=== PATIENT | female | born 2000 | race Two or more races ===

== ENCOUNTER 2022-08-20 23:55 | Outpatient (CLI) | payer MEDICAID, SELFPAY | END 2022-08-20 23:56 | disposition home or self-care (01) | LOC: AMB 08-22 10:51 | PROVIDERS: Visit Provider Emergency Medicine Emergency Medical Services | DX: R45.851 Suicidal ideations (principal); F10.129 Alcohol abuse with intoxication, unspecified | CPT/HCPCS: A0425; A0429 ==

== ENCOUNTER 2022-08-21 00:15 | Emergency (ER) | payer MEDICAID, SELFPAY ==
[2022-08-21 00:21] VITALS: BP 137/84; PULSE 82; RESP 18; TEMP 36.7; O2SAT 99; BMI 30.8
[2022-08-21 00:33] VITALS: BP 130/73; PULSE 73; RESP 16; O2SAT 97
[2022-08-21 01:01] VITALS: BP 124/88; PULSE 97; RESP 16; O2SAT 98
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
[2022-08-21 01:03] VITALS: O2SAT 98
[2022-08-21 01:15] LABS: Basophils Absolute Auto 0.04 K/uL (0.00-0.30); Basophils Percent Auto 0.5 % (0.0-3.0); Eosinophils Absolute Auto 0.06 K/uL (0.00-0.50); Eosinophils Percent Auto 0.8 % (0.0-7.0); Hematocrit 35.5 % (33.0-51.0); Hemoglobin* 12.2 gm/dL (12.0-16.0); Immature Granulocytes Abs Auto 0.01 K/uL (0.00-0.30); Immature Granulocytes Pct Auto 0.1 %; Lymphocytes Absolute Auto 2.58 K/uL (0.90-2.90); Lymphocytes Percent Auto 34.8 % (20-44); Mean Corpuscular HGB Conc 34 gm/dL (32-36); Mean Corpuscular Hemoglobin 33 pg (26-34); Mean Corpuscular Volume 97 fL (80-100); Monocytes Percent Auto 8.4 % (0.0-11.0); Neutrophils Percent Auto 55.4 % (42.0-72.0); Platelet Count* 281 K/uL (140-440); RDW Coefficient of Variation % 11.6 % (11.5-15.5); Red Blood Count 3.68 m/uL (4.00-5.20); White Blood Count* 7.41 K/uL (4.50-11.00)
[2022-08-21 01:18] LABS: Slide Review Reflex No
[2022-08-21 01:27] LABS: Amphetamine Screen Urine Negative (Negative); Barbiturate Screen Urine Negative (Negative); Benzodiazepines Screen Urine Negative (Negative); Cannabinoid Screen Urine Negative (Negative); Cocaine Screen Urine Negative (Negative); Methadone Screen Urine Negative (Negative); Methamphetamines Screen Urine Negative (Negative); Opiate Screen Urine Negative (Negative); Oxycodone Screen Urine Negative (Negative); Phencyclidine Screen Urine Negative (Negative)
[2022-08-21 01:28] LABS: HCG Qualitative* Negative (Negative)
[2022-08-21 01:30] LABS: Chloride* 106 mmol/L (96-114); Sodium* 143 mmol/L (135-149)
[2022-08-21 01:31] LABS: Potassium* 3.4 mmol/L (3.6-5.1)
[2022-08-21 01:33] LABS: Carbon Dioxide* 24 mmol/L (20-32); Creatinine* 0.6 mg/dL (0.5-1.5); Est. Creatinine Clearance* 132.34; Estimated Glomerular Filt Rate 130 ml/min
[2022-08-21 01:34] LABS: Blood Urea Nitrogen* 9 mg/dL (5-24); Calcium* 8.4 mg/dL (8.4-10.6); Glucose* 110 mg/dL (60-115)
[2022-08-21 01:37] LABS: Acetaminophen* < 10.0 ug/mL (10.0-30.0); Salicylate* < 1.0 mg/dL (1.0-10)
[2022-08-21 01:45] LABS: Ethanol* 0.36 % (0.01-0.03)
[2022-08-21 03:55] VITALS: BP 125/74; PULSE 79; RESP 16; TEMP 36.7; O2SAT 98
--- NOTE | 2022-08-21 09:56 | ED.NURSE ---
Called Mom, Kriss and she will be here in 15 min to pick daughter up for the day.
== END 2022-08-21 10:09 | disposition home or self-care (01) ==
PROVIDERS: Family Medicine; Emergency Provider Family Medicine
DX: F10.129 Alcohol abuse with intoxication, unspecified (principal); R45.851 Suicidal ideations
CPT/HCPCS: 36415; 80048; 80143; 80179; 80306; 82077; 84703; 85025; 94761; 99283; 99284

== ENCOUNTER 2023-02-08 14:18 | Outpatient (CLI) | payer MEDICAID, SELFPAY | END 2023-02-08 14:19 | disposition home or self-care (01) | LOC: AMB 02-11 10:23 | PROVIDERS: Visit Provider Family Medicine | DX: F10.129 Alcohol abuse with intoxication, unspecified (principal) | CPT/HCPCS: A0425; A0427 ==

== ENCOUNTER 2023-02-08 14:52 | Emergency (ER) | payer MEDICAID, SELFPAY ==
[2023-02-08] VITALS (20 sets, daily range): BP systolic 109–125; BP diastolic 61–75; PULSE 74–105; RESP 12–16; TEMP 36.3; O2SAT 89–100
[2023-02-08] MEDS: ONDANSETRON 2 MG/ML inj 4 MG IVP (15:06)
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
[2023-02-08] MEDS: 0.9 % SODIUM CHLORIDE 1000 ml 1,000 ML IV (15:24)
--- NOTE | 2023-02-08 15:36 | ED.NURSE ---
Pt not currently in restraints at this time, has agreed to be calm Blood was drawn and fluids hung for replenishment and pt resting calmly at this time.
[2023-02-08 15:38] LABS: Basophils Absolute Auto 0.08 K/uL (0.00-0.30); Basophils Percent Auto 1.5 % (0.0-3.0); Eosinophils Absolute Auto 0.05 K/uL (0.00-0.50); Hematocrit 38.2 % (33.0-51.0); Hemoglobin* 13.1 gm/dL (12.0-16.0); Immature Granulocytes Abs Auto 0.01 K/uL (0.00-0.30); Immature Granulocytes Pct Auto 0.2 %; Lymphocytes Percent Auto 46.8 % (20-44); Mean Corpuscular HGB Conc 34 gm/dL (32-36); Mean Corpuscular Hemoglobin 33 pg (26-34); Mean Corpuscular Volume 97 fL (80-100); Monocytes Percent Auto 6.1 % (0.0-11.0); Neutrophils Absolute Auto 2.31 K/uL (1.7-7.0); Neutrophils Percent Auto 44.4 % (42.0-72.0); Platelet Count* 338 K/uL (140-440); RDW Coefficient of Variation % 11.5 % (11.5-15.5); Red Blood Count 3.94 m/uL (4.00-5.20); White Blood Count* 5.21 K/uL (4.50-11.00)
[2023-02-08 15:50] LABS: Slide Review Reflex No
[2023-02-08 16:03] LABS: Albumin* 4.9 g/dL (3.3-5.0); Chloride* 109 mmol/L (96-114)
[2023-02-08 16:04] LABS: Potassium* 3.4 mmol/L (3.6-5.1); Sodium* 142 mmol/L (135-149)
[2023-02-08 16:06] LABS: Anion Gap 14 mEq/L (7-15); Aspartate Amino Transferase* 28 U/L (12-35); Bilirubin Total* 0.6 mg/dL (0.1-1.5); Carbon Dioxide* 19 mmol/L (20-32); Creatinine* 0.6 mg/dL (0.5-1.5); Estimated Glomerular Filt Rate 130 ml/min
[2023-02-08 16:07] LABS: Alanine Aminotransferase* 19 U/L (4-35); Alkaline Phosphatase* 69 U/L (40-150); Blood Urea Nitrogen* 6 mg/dL (5-24); Calcium* 8.4 mg/dL (8.4-10.6); Glucose* 125 mg/dL (60-115); Total Protein* 7.9 g/dL (6.0-8.3)
[2023-02-08 16:24] LABS: Magnesium* 2.1 mg/dL (1.5-2.6)
[2023-02-08 16:34] LABS: Acetaminophen* < 10.0 ug/mL (10.0-30.0); Salicylate* < 1.0 mg/dL (1.0-10)
[2023-02-08 16:39] LABS: HCG Qualitative Serum* Negative (Negative)
[2023-02-08 18:07] LABS: Amphetamine Screen Urine Negative (Negative); Barbiturate Screen Urine Negative (Negative); Benzodiazepines Screen Urine Negative (Negative); Cannabinoid Screen Urine Negative (Negative); Cocaine Screen Urine Negative (Negative); Methadone Screen Urine Negative (Negative); Methamphetamines Screen Urine Negative (Negative); Opiate Screen Urine Negative (Negative); Oxycodone Screen Urine Negative (Negative); Phencyclidine Screen Urine Negative (Negative); Tricyclic Antidepressant Urine Negative (Negative)
[2023-02-08 18:27] LABS: Ethanol* 0.38 % (0.01-0.03)
[2023-02-09 00:13] VITALS: BP 120/70; PULSE 84; RESP 16; TEMP 36.7; O2SAT 96
--- NOTE | 2023-02-09 07:19 | ED.NURSE ---
DEC assessment started.
--- NOTE | 2023-02-09 07:54 | ED.NURSE ---
reviewed safety plan with pt
--- NOTE | 2023-02-09 22:59 | ED.NURSE ---
chart accessed for DEC as they needed to know disposition.
== END 2023-02-09 07:54 | disposition home or self-care (01) ==
PROVIDERS: Emergency Provider Family Medicine
DX: R45.851 Suicidal ideations (principal); F32.A Depression, unspecified; F10.129 Alcohol abuse with intoxication, unspecified
CPT/HCPCS: 36415; 80053; 80143; 80179; 80306; 82077; 83735; 84703; 85025; 96361; 96374; 99284; 99285; J2405; J7030

== ENCOUNTER 2023-07-10 16:58 | Outpatient (CLI) | payer MEDICAID, SELFPAY | END 2023-07-10 16:59 | disposition home or self-care (01) | LOC: AMB 07-11 05:09 | PROVIDERS: Visit Provider Emergency Medicine | DX: F10.129 Alcohol abuse with intoxication, unspecified (principal); R11.2 Nausea with vomiting, unspecified | CPT/HCPCS: A0425; A0427 ==

== ENCOUNTER 2023-07-10 17:22 | Emergency (ER) | payer MEDICAID, SELFPAY ==
[2023-07-10] VITALS (27 sets, daily range): BP systolic 91–120; BP diastolic 53–75; PULSE 71–96; RESP 16–20; TEMP 36.4; O2SAT 93–100
--- NOTE | 2023-07-10 17:41 | ED_ITS ---
HPI - Alcohol General Date Seen: 07/10/23 <Aries Meierram DO - Last Filed: 07/10/23 23:51> Chief Complaint: Alcohol/Intoxication <Aries Hitchcock DO - Last Filed: 07/10/23 23:51> Stated Complaint: ETOH <Aries Hitchcock DO - Last Filed: 07/10/23 23:51> Time Seen by Provider: 07/10/23 17:23 <Aries Hitchcock DO - Last Filed: 07/10/23 23:51> Source: EMS <Aries Hitchcock DO - Last Filed: 07/10/23 23:51> Mode of arrival: EMS <Aries Hitchcock DO - Last Filed: 07/10/23 23:51> Limitations: altered mental status <Aries Hitchcock DO - Last Filed: 07/10/23 23:51> History of Present Illness HPI narrative: Patient is a 23-year-old female brought in by EMS for alcohol intoxication. The were called to her home by friends that she was drinking with because the patient was unresponsive. By the time EMS arrived she was awake but was obviously intoxicated. They state all the friend's at the house were also very intoxicated. Due to her level of intoxication initial unresponsiveness they did find necessary to bring her to the emergency department for evaluation. On the way she became combative and after a parnell conversation she calmed down. Was given 500 mL of fluid and 4 of Zofran for her nausea. Patient is still quite intoxicated and unable to clearly answer questions but she is awake. Very in her chart notes she has a history of alcohol abuse and has been in this emergency department twice in the past year for alcohol abuse and suicidal ideation. She has been quite intoxicated both time she was here. Family previous states she has failed outpatient alcohol counseling. <Aries P Naldo, DO - Last Filed: 07/10/23 23:51> Patient is a 23-year-old female brought in by EMS for alcohol intoxication. The were called to her home by friends that she was drinking with because the patient was unresponsive. By the time EMS arrived she was awake but was obviously intoxicated. They state all the friend's at the house were also very intoxicated. Due to her level of intoxication initial unresponsiveness they did find necessary to bring her to the emergency department for evaluation. On the way she became combative and after a parnell conversation she calmed down. Was given 500 mL of fluid and 4 of Zofran for her nausea. Patient is still quite intoxicated and unable to clearly answer questions but she is awake. Very in her chart notes she has a history of alcohol abuse and has been in this emergency department twice in the past year for alcohol abuse and suicidal ideation. She has been quite intoxicated both time she was here. Family previous states she has failed outpatient alcohol counseling. <Fariba Carr RN - Last Filed: 07/10/23 23:07> Related Data Home Medications: Home Medications Medication Instructions Recorded Confirmed No Known Home Medications 08/21/22 01/17/23 <Aries Hitchcock DO - Last Filed: 07/10/23 23:51> Allergies/Adverse Reactions: Allergies Allergy/AdvReac Type Severity Reaction Status Date / Time No Known Drug Allergies Allergy Verified 01/17/23 13:32 <Aries Hitchcock DO - Last Filed: 07/10/23 23:51> Review of Systems Status of ROS Reports: unobtainable due to mental status <Aries Hitchcock DO - Last Filed: 07/10/23 23:51> [facility] Medical History: Medical History Alcohol abuse ?F10.10 - Alcohol abuse, uncomplicated (ICD-10) <Aries Hitchcock DO - Last Filed: 07/10/23 23:51> Surgical History: Surgical History No significant past surgical history <Aries Hitchcock DO - Last Filed: 07/10/23 23:51> Social History: Social History Smoking Status: Never smoker Second hand tobacco smoke exposure: No How often do you have a drink containing alcohol: 4 or more times a week How many standard drinks containing alcohol do you have on a typical day: 10 or more How often do you have six or more drinks on one occasion: Daily or almost daily AUDIT-C Alcohol total score: 12 Non-prescribed substance use: denies use <Aries Hitchcock DO - Last Filed: 07/10/23 23:51> Exam Narrative: Exam Narrative: Const: Appears intoxicated Eyes: PERRL, no conjunctival injection, and symmetrical lids HENT: Atraumatic external nose and ears. Moist mucous membranes. Neck: Symmetric, trachea midline, No thyromegaly. CVS: RRR, No murmurs or gallops. Peripheral pulses 2+ and equal in all extremities RESP: Unlabored respiratory effort. Clear to auscultation bilaterally. GI: Nontender/Nondistended, No rebound or guarding. MSK:Extremities w/o deformity, Normal Active ROM Skin: Warm, Dry. No rashes or lesions. Neuro: Normal Muscle tone, No focal neurological deficits. Psych: Awake, Alert, & Oriented x3. Appropriate mood and affect. <Aries Hitchcock, - Last Filed: 07/10/23 23:51> Const: Vital Signs, click to edit/add: Vital Signs - 24 hr 07/10/23 17:30 07/10/23 17:45 07/10/23 18:00 Temperature 97.5 F L Pulse Rate 76 81 Pulse Rate [Pulse Oximeter] 85 Respiratory Rate 20 Blood Pressure Blood Pressure [Ri ght Upper Arm] 120/75 Pulse [facility]ximetry 93 93 [facility] 07/10/23 18:01 07/10/23 18:02 07/10/23 18:15 Temperature Pulse Rate 78 74 74 Pulse Rate [Pulse Oximeter] Respiratory Rate Blood Pressure 103/61 Blood Pressure [Ri ght Upper Arm] Pulse Oximetry 98 99 100 [facility] 07/10/23 18:30 07/10/23 18:31 07/10/23 18:45 Temperature Pulse Rate 71 71 73 Pulse Rate [Pulse Oximeter] Respiratory Rate Blood Pressure 91/53 L Blood Pressure [Ri ght Upper Arm] Pulse Oximetry 99 99 99 [facility] 07/10/23 19:00 07/10/23 19:04 07/10/23 19:15 Temperature Pulse Rate 72 91 75 Pulse Rate [Pulse Oximeter] Respiratory Rate Blood Pressure 103/68 Blood Pressure [Ri ght Upper Arm] Pulse Oximetry 98 100 98 [facility] 07/10/23 19:30 07/10/23 19:33 07/10/23 19:34 Temperature Pulse Rate 74 85 81 Pulse Rate [Pulse Oximeter] Respiratory Rate Blood Pressure 96/55 L Blood Pressure [Ri ght Upper Arm] Pulse Oximetry 98 100 98 Oxygen Delivery Me thod 07/10/23 19:45 07/10/23 20:00 07/10/23 21:40 Temperature Pulse Rate 90 84 93 Pulse Rate [Pulse Oximeter] Respiratory Rate Blood Pressure 102/60 Blood Pressure [Ri ght Upper Arm] Pulse Oximetry 98 98 99 Oxygen Delivery Me thod 07/10/23 21:41 07/10/23 21:45 07/10/23 22:00 Temperature Pulse Rate 96 86 83 Pulse Rate [Pulse Oximeter] Respiratory Rate Blood Pressure Blood Pressure [Ri ght Upper Arm] Pulse Oximetry 99 97 99 Oxygen Delivery Me thod 07/10/23 22:01 07/10/23 22:03 07/10/23 22:15 Temperature Pulse Rate 80 87 Pulse Rate [Pulse Oximeter] Respiratory Rate 16 Blood Pressure 103/61 Blood Pressure [Ri ght Upper Arm] Pulse Oximetry 99 99 Oxygen Delivery Me thod 07/10/23 22:30 07/10/23 22:45 07/10/23 23:00 Temperature Pulse Rate 83 80 Pulse Rate [Pulse Oximeter] Respiratory Rate Blood Pressure Blood Pressure [Ri ght Upper Arm] Pulse Oximetry 98 99 99 Oxygen Delivery Me thod 07/11/23 01:57 Temperature 98.0 F Pulse Rate Pulse Rate [Pulse Oximeter] 81 Respiratory Rate 16 Blood Pressure Blood Pressure [Ri ght Upper Arm] 118/76 Pulse Oximetry 99 Oxygen Delivery Me od Room Air <Aries Hitchcock, DO - Last Filed: 07/10/23 23:51> Vital Signs, click to edit/add: Vital Signs - 24 hr 07/10/23 17:30 07/10/23 17:45 07/10/23 18:00 Temperature 97.5 F L Pulse Rate 76 81 Pulse Rate [Pulse Oximeter] 85 Respiratory Rate 20 Blood Pressure Blood Pressure [Ri ght Upper Arm] 120/75 Pulse Oximetry 93 93 98 Oxygen Delivery Me thod Room Air 07/10/23 18:01 07/10/23 18:02 07/10/23 18:15 Temperature Pulse Rate 78 74 74 Pulse Rate [Pulse Oximeter] Respiratory Rate Blood Pressure 103/61 Blood Pressure [Ri ght Upper Arm] Pulse Oximetry 98 99 100 Oxygen Delivery Me thod 07/10/23 18:30 05/01/24 18:31 07/10/23 18:45 Temperature Pulse Rate 71 71 73 Pulse Rate [Pulse Oximeter] Respiratory Rate Blood Pressure 91/53 L Blood Pressure [Ri ght Upper Arm] Pulse Oximetry 99 99 99 Oxygen Delivery Me thod 07/10/23 19:00 07/10/23 19:04 07/10/23 19:15 Temperature Pulse Rate 72 91 75 Pulse Rate [Pulse Oximeter] Respiratory Rate Blood Pressure 103/68 Blood Pressure [Ri ght Upper Arm] Pulse Oximetry 98 100 98 Oxygen Delivery Me thod 07/10/23 19:30 07/10/23 19:33 07/10/23 19:34 Temperature Pulse Rate 74 85 81 Pulse Rate [Pulse Oximeter] Respiratory Rate Blood Pressure 96/55 L Blood Pressure [Ri ght Upper Arm] Pulse Oximetry 98 100 98 Oxygen Delivery Me thod 07/10/23 19:45 07/10/23 20:00 07/10/23 21:40 Temperature Pulse Rate 90 84 93 Pulse Rate [Pulse Oximeter] Respiratory Rate Blood Pressure 102/60 Blood Pressure [Ri ght Upper Arm] Pulse Oximetry 98 98 99 Oxygen Delivery Me od 07/10/23 21:41 07/10/23 21:45 07/10/23 22:00 Temperature Pulse Rate 96 86 83 Pulse Rate [Pulse Oximeter] Respiratory Rate Blood Pressure Blood Pressure [Ri ght Upper Arm] Pulse Oximetry 99 97 99 Oxygen Delivery Me od 07/10/23 22:01 07/10/23 22:03 07/10/23 22:15 Temperature Pulse Rate 80 87 Pulse Rate [Pulse Oximeter] Respiratory Rate 16 Blood Pressure 103/61 Blood Pressure [Ri ght Upper Arm] Pulse Oximetry 99 99 Oxygen Delivery Me od 07/10/23 22:30 07/10/23 22:45 07/10/23 23:00 Temperature Pulse Rate 83 80 Pulse Rate [Pulse Oximeter] Respiratory Rate Blood Pressure Blood Pressure [Ri ght Upper Arm] Pulse Oximetry 98 99 99 Oxygen Delivery Me od 07/11/23 01:57 Temperature 98.0 F Pulse Rate Pulse Rate [Pulse Oximeter] 81 Respiratory Rate 16 Blood Pressure Blood Pressure [Ri ght Upper Arm] 118/76 Pulse Oximetry 99 Oxygen Delivery Me od Room Air <Fariba Carr RN - Last Filed: 07/10/23 23:07> Vital Signs, click to edit/add: Vital Signs - 24 hr 07/10/23 17:30 07/10/23 17:45 07/10/23 18:00 Temperature 97.5 F L Pulse Rate 76 81 Pulse Rate [Pulse Oximeter] 85 Respiratory Rate 20 Blood Pressure Blood Pressure [Ri ght Upper Arm] 120/75 Pulse Oximetry 93 93 98 [facility] 07/10/23 18:01 07/10/23 18:02 07/10/23 18:15 Temperature Pulse Rate 78 74 74 Pulse Rate [Pulse Oximeter] Respiratory Rate Blood Pressure 103/61 Blood Pressure [Ri ght Upper Arm] Pulse Oximetry 98 99 100 [facility] 07/10/23 18:30 07/10/23 18:31 07/10/23 18:45 Temperature Pulse Rate 71 71 73 Pulse Rate [Pulse Oximeter] Respiratory Rate Blood Pressure 91/53 L Blood Pressure [Ri ght Upper Arm] Pulse Oximetry 99 99 99 [facility] 07/10/23 19:00 07/10/23 19:04 07/10/23 19:15 Temperature Pulse Rate 72 91 75 Pulse Rate [Pulse Oximeter] Respiratory Rate Blood Pressure 103/68 Blood Pressure [Ri ght Upper Arm] Pulse Oximetry 98 100 98 [facility] 07[facility]10/23 19:30 07/10/23 19:33 07/10/23 19:34 Temperature Pulse Rate 74 85 81 Pulse Rate [Pulse Oximeter] Respiratory Rate Blood Pressure 96/55 L Blood Pressure [Ri ght Upper Arm] Pulse Oximetry 98 100 98 [facility] 07/10/23 19:45 07/10/23 20:00 07/10/23 21:40 Temperature Pulse Rate 90 84 93 Pulse Rate [Pulse Oximeter] Respiratory Rate Blood Pressure 102/60 Blood Pressure [Ri ght Upper Arm] Pulse Oximetry 98 98 99 [facility] 07/10/23 21:41 07/10/23 21:45 07/10/23 22:00 Temperature Pulse Rate 96 86 83 Pulse Rate [Pulse Oximeter] Respiratory Rate Blood Pressure Blood Pressure [Ri ght Upper Arm] Pulse Oximetry 99 97 99 [facility] 07/10/23 22:01 07/10/23 22:03 07/10/23 22:15 Temperature Pulse Rate 80 87 Pulse Rate [Pulse Oximeter] Respiratory Rate 16 Blood Pressure 103/61 Blood Pressure [Ri ght Upper Arm] Pulse Oximetry 99 99 Oxygen Delivery Me thod 07/10/23 22:30 07/10/23 22:45 07/10/23 23:00 Temperature Pulse Rate 83 80 Pulse Rate [Pulse Oximeter] Respiratory Rate Blood Pressure Blood Pressure [Ri ght Upper Arm] Pulse Oximetry 98 99 99 Oxygen Delivery Me thod 07/11/23 01:57 Temperature 98.0 F Pulse Rate Pulse Rate [Pulse Oximeter] 81 Respiratory Rate 16 Blood Pressure Blood Pressure [Ri ght Upper Arm] 118/76 Pulse Oximetry 99 Oxygen Delivery Me thod Room Air <Brook Sethi MD - Last Filed: 07/11/23 05:55> Course Course ED Course: Patient discharged at 5:45 a.m. when right was available. Required no further care on my shift, Dr. Sethi <Brook Sethi MD - Last Filed: 07/11/23 05:55> Vital Signs Vital signs: Initial Vital Signs Temperature 97.5 F L 07/10/23 17:30 Temperature Source Temporal Artery Scan 07/10/23 17:30 Pulse Rate 85 07/10/23 17:30 Respiratory Rate 20 07/10/23 17:30 Blood Pressure 120/75 07/10/23 17:30 Blood Pressure Mean 90 07/10/23 17:30 Blood Pressure Position Supine 07/10/23 17:30 Pulse Oximetry 93 07/10/23 17:30 Oxygen Delivery Method Room Air 07/10/23 17:30 Vital Signs Temperature 97.5 F L 07/10/23 17:30 Pulse Rate 85 07/10/23 17:30 Respiratory Rate 20 07/10/23 17:30 Blood Pressure 120/75 07/10/23 17:30 Pulse Oximetry 93 07/10/23 17:30 Oxygen Delivery Method Room Air 07/10/23 17:30 Temperature 98.0 F 07/11/23 01:57 Pulse Rate 81 07/11/23 01:57 Respiratory Rate 16 07/11/23 01:57 Blood Pressure 118/76 07/11/23 01:57 Pulse Oximetry 99 07/11/23 01:57 Oxygen Delivery Method Room Air 07/11/23 01:57 <Aries Hitchcock DO - Last Filed: 07/10/23 23:51> Initial Vital Signs Temperature 97.5 F L 07/10/23 17:30 Temperature Source Temporal Artery Scan 07/10/23 17:30 Pulse Rate 85 07/10/23 17:30 Respiratory Rate 20 07/10/23 17:30 Blood Pressure 120/75 07/10/23 17:30 Blood Pressure Mean 90 07/10/23 17:30 Blood Pressure Position Supine 07/10/23 17:30 Pulse Oximetry 93 07/10/23 17:30 Oxygen Delivery Method Room Air 07/10/23 17:30 Vital Signs Temperature 97.5 F L 07/10/23 17:30 Pulse Rate 85 07/10/23 17:30 Respiratory Rate 20 07/10/23 17:30 Blood Pressure 120/75 07/10/23 17:30 Pulse Oximetry 93 07/10/23 17:30 Oxygen Delivery Method Room Air 07/10/23 17:30 Temperature 98.0 F 07/11/23 01:57 Pulse Rate 81 07/11/23 01:57 Respiratory Rate 16 07/11/23 01:57 Blood Pressure 118/76 07/11/23 01:57 Pulse Oximetry 99 07/11/23 01:57 Oxygen Delivery Method Room Air 07/11/23 01:57 <Fariba Carr, RN - Last Filed: 07/10/23 23:07> Initial Vital Signs Temperature 97.5 F L 07/10/23 17:30 Temperature Source Temporal Artery Scan 07/10/23 17:30 Pulse Rate 85 07/10/23 17:30 Respiratory Rate 20 07/10/23 17:30 Blood Pressure 120/75 07/10/23 17:30 Blood Pressure Mean 90 07/10/23 17:30 Blood Pressure Position Supine 07/10/23 17:30 Pulse Oximetry 93 07/10/23 17:30 Oxygen Delivery Method Room Air 07/10/23 17:30 Vital Signs Temperature 97.5 F L 07/10/23 17:30 Pulse Rate 85 07/10/23 17:30 Respiratory Rate 20 07/10/23 17:30 Blood Pressure 120/75 07/10/23 17:30 Pulse Oximetry 93 07/10/23 17:30 Oxygen Delivery Method Room Air 07/10/23 17:30 Temperature 98.0 F 07/11/23 01:57 Pulse Rate 81 07/11/23 01:57 Respiratory Rate 16 07/11/23 01:57 Blood Pressure 118/76 07/11/23 01:57 Pulse Oximetry 99 07/11/23 01:57 Oxygen Delivery Method Room Air 07/11/23 01:57 <Brook Sethi MD - Last Filed: 07/11/23 05:55> Medications Administered Medications: Discontinued Medications Generic Name Dose Route Start Last Admin Trade Name Freq PRN Reason Stop Dose Admin Folic Acid 1 mg/ Multivitamins 1,011.2 mls @ 252.8 mls/hr 07/10/23 19:50 07/11/23 00:02 10 ml/ Thiamine HCl 100 mg/ IV 07/10/23 23:49 Infused Sodium Chloride .Q4H GORAN Infusion <Aries Hitchcock DO - Last Filed: 07/10/23 23:51> Discontinued Medications Generic Name Dose Route Start Last Admin Trade Name Freq PRN Reason Stop Dose Admin Folic Acid 1 mg/ Multivitamins 1,011.2 mls @ 252.8 mls/hr 07/10/23 19:50 07/11/23 00:02 10 ml/ Thiamine HCl 100 mg/ IV 07/10/23 23:49 Infused Sodium Chloride .Q4H GORAN Infusion <Fariba Carr RN - Last Filed: 07/10/23 23:07> Discontinued Medications Generic Name Dose Route Start Last Admin Trade Name Freq PRN Reason Stop Dose Admin Folic Acid 1 mg/ Multivitamins 1,011.2 mls @ 252.8 mls/hr 07/10/23 19:50 07/11/23 00:02 10 ml/ Thiamine HCl 100 mg/ IV 07/10/23 23:49 Infused Sodium Chloride .Q4H GORAN Infusion <Brook Sethi MD - Last Filed: 07/11/23 05:55> MDM - Alcohol MDM Narrative Medical decision making narrative: Patient is a 23-year-old female presenting for alcohol intoxication. test, urine drug screen, urinalysis, acetaminophen, salicylate, CBC, CMP, EtOH all ordered. ETOH level came back at 0.38. This is likely the cause of all of her symptoms. She has been given a banana bag. CMP shows no concerning findings. CBC shows no concerning findings. Urinalysis shows no concerning findings. Is normal salicylate and acetaminophen levels. Urine drug screen shows no findings. Patient is more awake now and answering questions appropriately. She would like to be discharged but is too intoxicated to discharge without someone coming to pick her up. With her history though I did ask about any suicidal homicidal ideation at this time she denies it. Patient is appearing clinically sober but is not safe for discharge at this time due to her alcohol level. Police de partjustin is agreeable to go check her house to look for the phone. She gave him permission to do this and gave them her keys and information to get into the house. They the hope is she will be able to call someone to pick her up with her cellphone. <Aries Hitchcock, DO - Last Filed: 07/10/23 23:51> Lab Data Labs: Lab Results 07/10/23 07/10/23 07/10/23 Range/Units 17:30 18:08 19:29 WBC 6.02 (4.50-11.00) K/uL RBC 3.69 L (4.00-5.20) m/uL Hgb 12.3 (12.0-16.0) gm/dL Hct 35.7 (33.0-51.0) % MCV 97 (80-100) fL MCH 33 (26-34) pg MCHC 35 (32-36) gm/dL RDW Coeff of Chloe 11.7 (11.5-15.5) % Plt Count 318 (140-440) K/uL Neut % (Auto) 42.0 (42.0-72.0) % Lymph % (Auto) 50.2 H (20-44) % [place] % (Auto) 5.8 (0.0-11.0) % Eos % (Auto) 0.5 (0.0-7.0) % Baso % (Auto) 1.5 (0.0-3.0) % Neut # (Auto) 2.53 (1.7-7.0) K/uL Lymph # (Auto) 3.00 H (0.90-2.90) K/uL [place] # (Auto) 0.30 (0.00-0.90) K/UL Eos # (Auto) 0.03 (0.00-0.50) K/uL Baso # (Auto) 0.09 (0.00-0.30) K/uL Abs Immat Gran (auto) 0.00 (0.00-0.30) K/uL Imm/Tot Granulo (auto) 0.0 % Sodium 144 (135-149) mmol/L Potassium 3.9 (3.6-5.1) mmol/L Chloride 110 (96-114) mmol/L Carbon Dioxide 24 (20-32) mmol/L Anion Gap 10 (7-15) mEq/L BUN 10 (5-24) mg/dL Creatinine 0.6 (0.5-1.5) mg/dL Estimated GFR 129 ml/min Glucose 134 H (60-115) mg/dL Calcium 8.7 (8.4-10.6) mg/dL Total Bilirubin 0.4 (0.1-1.5) mg/dL AST 36 H (12-35) U/L ALT 23 (4-35) U/L Alkaline Phosphatase 61 (40-150) U/L Total Protein 7.5 (6.0-8.3) g/dL Albumin 4.7 (3.3-5.0) g/dL HCG, Qual Negative (Negative) Urine Color (Yellow) Urine Appearance (Clear) Urine pH (5.0-8.5) Ur Specific Lander (1.000-1.030) Urine Protein (Negative) Urine Glucose (UA) (Negative) Urine Ketones (Negative) Urine Blood (Negative) Urine Nitrite (Negative) Urine Bilirubin (Negative) Urine Urobilinogen (0.2-1.0) Ur Leukocyte Esterase (Negative) Urine RBC (0-2) Urine WBC (0-5) Ur Squamous Epith Cells (None-Few) Urine Bacteria (None) Urine HCG, Qual (Negative) Salicylates < 1.0 L (1.0-10) mg/dL Urine Opiates Screen (Negative) Ur Oxycodone Screen (Negative) Urine Methadone Screen (Negative) Acetaminophen < 10.0 L (10.0-30.0) ug/mL Ur Barbiturates Screen (Negative) U Tricyclic Antidepress (Negative) Ur Phencyclidine Scrn (Negative) Ur Amphetamines Screen (Negative) U Methamphetamines Scrn (Negative) U Benzodiazepines Scrn (Negative) Urine Cocaine Screen (Negative) U Marijuana (THC) Screen (Negative) Ur Drug Screen Comment Ethyl Alcohol 0.38 H* (0.01-0.03) % Lab Acknowledgement Test Added 07/10/23 Range/Units 20:20 WBC (4.50-11.00) K/uL RBC (4.00-5.20) m/uL Hgb (12.0-16.0) gm/dL Hct (33.0-51.0) % MCV (80-100) fL MCH (26-34) pg MCHC (32-36) gm/dL RDW Coeff of Chloe (11.5-15.5) % Plt Count (140-440) K/uL Neut % (Auto) (42.0-72.0) % Lymph % (Auto) (20-44) % Penning[place] % (Auto) (0.0-11.0) % Eos % (Auto) (0.0-7.0) % Baso % (Auto) (0.0-3.0) % Neut # (Auto) (1.7-7.0) K/uL Lymph # (Auto) (0.90-2.90) K/uL [place] # (Auto) (0.00-0.90) K/UL Eos # (Auto) (0.00-0.50) K/uL Baso # (Auto) (0.00-0.30) K/uL Abs Immat Gran (auto) (0.00-0.30) K/uL Imm/Tot Granulo (auto) % Sodium (135-149) mmol/L Potassium (3.6-5.1) mmol/L Chloride (96-114) mmol/L Carbon Dioxide (20-32) mmol/L Anion Gap (7-15) mEq/L BUN (5-24) mg/dL Creatinine (0.5-1.5) mg/dL Estimated GFR ml/min Glucose (60-115) mg/dL Calcium (8.4-10.6) mg/dL Total Bilirubin (0.1-1.5) mg/dL AST (12-35) U/L ALT (4-35) U/L Alkaline Phosphatase (40-150) U/L Total Protein (6.0-8.3) g/dL Albumin (3.3-5.0) g/dL HCG, Qual (Negative) Urine Color Yellow (Yellow) Urine Appearance Clear (Clear) Urine pH 7.0 (5.0-8.5) Ur Specific Lander 1.015 (1.000-1.030) Urine Protein Negative (Negative) Urine Glucose (UA) Negative (Negative) Urine Ketones Negative (Negative) Urine Blood Negative (Negative) Urine Nitrite Negative (Negative) Urine Bilirubin Negative (Negative) Urine Urobilinogen 0.2 (0.2-1.0) Ur Leukocyte Esterase Trace A (Negative) Urine RBC 0-2 (0-2) Urine WBC 0-2 (0-5) Ur Squamous Epith Cells None (None-Few) Urine Bacteria None (None) Urine HCG, Qual Negative (Negative) Salicylates (1.0-10) mg/dL Urine Opiates Screen Negative (Negative) Ur Oxycodone Screen Negative (Negative) Urine Methadone Screen Negative (Negative) Acetaminophen (10.0-30.0) ug/mL Ur Barbiturates Screen Negative (Negative) U Tricyclic Antidepress Negative (Negative) Ur Phencyclidine Scrn Negative (Negative) Ur Amphetamines Screen Negative (Negative) U Methamphetamines Scrn Negative (Negative) U Benzodiazepines Scrn Negative (Negative) Urine Cocaine Screen Negative (Negative) U Marijuana (THC) Screen Negative (Negative) Ur Drug Screen Comment See Note Ethyl Alcohol (0.01-0.03) % Lab Acknowledgement <Aries Hitchcock, DO - Last Filed: 07/10/23 23:51> Lab Results 07/10/23 07/10/23 07/10/23 Range/Units 17:30 18:08 19:29 WBC 6.02 (4.50-11.00) K/uL RBC 3.69 L (4.00-5.20) m/uL Hgb 12.3 (12.0-16.0) gm/dL Hct 35.7 (33.0-51.0) % MCV 97 (80-100) fL MCH 33 (26-34) pg MCHC 35 (32-36) gm/dL RDW Coeff of Chloe 11.7 (11.5-15.5) % Plt Count 318 (140-440) K/uL Neut % (Auto) 42.0 (42.0-72.0) % Lymph % (Auto) 50.2 H (20-44) % [place] % (Auto) 5.8 (0.0-11.0) % Eos % (Auto) 0.5 (0.0-7.0) % Baso % (Auto) 1.5 (0.0-3.0) % Neut # (Auto) 2.53 (1.7-7.0) K/uL Lymph # (Auto) 3.00 H (0.90-2.90) K/uL [place] # (Auto) 0.30 (0.00-0.90) K/UL Eos # (Auto) 0.03 (0.00-0.50) K/uL Baso # (Auto) 0.09 (0.00-0.30) K/uL Abs Immat Gran (auto) 0.00 (0.00-0.30) K/uL Imm/Tot Granulo (auto) 0.0 % Sodium 144 (135-149) mmol/L Potassium 3.9 (3.6-5.1) mmol/L Chloride 110 (96-114) mmol/L Carbon Dioxide 24 (20-32) mmol/L Anion Gap 10 (7-15) mEq/L BUN 10 (5-24) mg/dL Creatinine 0.6 (0.5-1.5) mg/dL Estimated GFR 129 ml/min Glucose 134 H (60-115) mg/dL Calcium 8.7 (8.4-10.6) mg/dL Total Bilirubin 0.4 (0.1-1.5) mg/dL AST 36 H (12-35) U/L ALT 23 (4-35) U/L Alkaline Phosphatase 61 (40-150) U/L Total Protein 7.5 (6.0-8.3) g/dL Albumin 4.7 (3.3-5.0) g/dL HCG, Qual Negative (Negative) Urine Color (Yellow) Urine Appearance (Clear) Urine pH (5.0-8.5) Ur Specific Lander (1.000-1.030) Urine Protein (Negative) Urine Glucose (UA) (Negative) Urine Ketones (Negative) Urine Blood (Negative) Urine Nitrite (Negative) Urine Bilirubin (Negative) Urine Urobilinogen (0.2-1.0) Ur Leukocyte Esterase (Negative) Urine RBC (0-2) Urine WBC (0-5) Ur Squamous Epith Cells (None-Few) Urine Bacteria (None) Urine HCG, Qual (Negative) Salicylates < 1.0 L (1.0-10) mg/dL Urine Opiates Screen (Negative) Ur Oxycodone Screen (Negative) Urine Methadone Screen (Negative) Acetaminophen < 10.0 L (10.0-30.0) ug/mL Ur Barbiturates Screen (Negative) U Tricyclic Antidepress (Negative) Ur Phencyclidine Scrn (Negative) Ur Amphetamines Screen (Negative) U Methamphetamines Scrn (Negative) U Benzodiazepines Scrn (Negative) Urine Cocaine Screen (Negative) U Marijuana (THC) Screen (Negative) Ur Drug Screen Comment Ethyl Alcohol 0.38 H* (0.01-0.03) % Lab Acknowledgement Test Added 07/10/23 Range/Units 20:20 WBC (4.50-11.00) K/uL RBC (4.00-5.20) m/uL Hgb (12.0-16.0) gm/dL Hct (33.0-51.0) % MCV (80-100) fL MCH (26-34) pg MCHC (32-36) gm/dL RDW Coeff of Chloe (11.5-15.5) % Plt Count (140-440) K/uL Neut % (Auto) (42.0-72.0) % Lymph % (Auto) (20-44) % [place] % (Auto) (0.0-11.0) % Eos % (Auto) (0.0-7.0) % Baso % (Auto) (0.0-3.0) % Neut # (Auto) (1.7-7.0) K/uL Lymph # (Auto) (0.90-2.90) K/uL Pen[place] # (Auto) (0.00-0.90) K/UL Eos # (Auto) (0.00-0.50) K/uL Baso # (Auto) (0.00-0.30) K/uL Abs Immat Gran (auto) (0.00-0.30) K/uL Imm/Tot Granulo (auto) % Sodium (135-149) mmol/L Potassium (3.6-5.1) mmol/L Chloride (96-114) mmol/L Carbon Dioxide (20-32) mmol/L Anion Gap (7-15) mEq/L BUN (5-24) mg/dL Creatinine (0.5-1.5) mg/dL Estimated GFR ml/min Glucose (60-115) mg/dL Calcium (8.4-10.6) mg/dL Total Bilirubin (0.1-1.5) mg/dL AST (12-35) U/L ALT (4-35) U/L Alkaline Phosphatase (40-150) U/L Total Protein (6.0-8.3) g/dL Albumin (3.3-5.0) g/dL HCG, Qual (Negative) Urine Color Yellow (Yellow) Urine Appearance Clear (Clear) Urine pH 7.0 (5.0-8.5) Ur Specific Lander 1.015 (1.000-1.030) Urine Protein Negative (Negative) Urine Glucose (UA) Negative (Negative) Urine Ketones Negative (Negative) Urine Blood Negative (Negative) Urine Nitrite Negative (Negative) Urine Bilirubin Negative (Negative) Urine Urobilinogen 0.2 (0.2-1.0) Ur Leukocyte Esterase Trace A (Negative) Urine RBC 0-2 (0-2) Urine WBC 0-2 (0-5) Ur Squamous Epith Cells None (None-Few) Urine Bacteria None (None) Urine HCG, Qual Negative (Negative) Salicylates (1.0-10) mg/dL Urine Opiates Screen Negative (Negative) Ur Oxycodone Screen Negative (Negative) Urine Methadone Screen Negative (Negative) Acetaminophen (10.0-30.0) ug/mL Ur Barbiturates Screen Negative (Negative) U Tricyclic Antidepress Negative (Negative) Ur Phencyclidine Scrn Negative (Negative) Ur Amphetamines Screen Negative (Negative) U Methamphetamines Scrn Negative (Negative) U Benzodiazepines Scrn Negative (Negative) Urine Cocaine Screen Negative (Negative) U Marijuana (THC) Screen Negative (Negative) Ur Drug Screen Comment See Note Ethyl Alcohol (0.01-0.03) % Lab Acknowledgement <Fariba Carr RN - Last Filed: 07/10/23 23:07> Lab Results 07/10/23 07/10/23 07/10/23 Range/Units 17:30 18:08 19:29 WBC 6.02 (4.50-11.00) K/uL RBC 3.69 L (4.00-5.20) m/uL Hgb 12.3 (12.0-16.0) gm/dL Hct 35.7 (33.0-51.0) % MCV 97 (80-100) fL MCH 33 (26-34) pg MCHC 35 (32-36) gm/dL RDW Coeff of Chloe 11.7 (11.5-15.5) % Plt Count 318 (140-440) K/uL Neut % (Auto) 42.0 (42.0-72.0) % Lymph % (Auto) 50.2 H (20-44) % Penning[place] % (Auto) 5.8 (0.0-11.0) % Eos % (Auto) 0.5 (0.0-7.0) % Baso % (Auto) 1.5 (0.0-3.0) % Neut # (Auto) 2.53 (1.7-7.0) K/uL Lymph # (Auto) 3.00 H (0.90-2.90) K/uL [place] # (Auto) 0.30 (0.00-0.90) K/UL Eos # (Auto) 0.03 (0.00-0.50) K/uL Baso # (Auto) 0.09 (0.00-0.30) K/uL Abs Immat Gran (auto) 0.00 (0.00-0.30) K/uL Imm/Tot Granulo (auto) 0.0 % Sodium 144 (135-149) mmol/L Potassium 3.9 (3.6-5.1) mmol/L Chloride 110 (96-114) mmol/L Carbon Dioxide 24 (20-32) mmol/L Anion Gap 10 (7-15) mEq/L BUN 10 (5-24) mg/dL Creatinine 0.6 (0.5-1.5) mg/dL Estimated GFR 129 ml/min Glucose 134 H (60-115) mg/dL Calcium 8.7 (8.4-10.6) mg/dL Total Bilirubin 0.4 (0.1-1.5) mg/dL AST 36 H (12-35) U/L ALT 23 (4-35) U/L Alkaline Phosphatase 61 (40-150) U/L Total Protein 7.5 (6.0-8.3) g/dL Albumin 4.7 (3.3-5.0) g/dL HCG, Qual Negative (Negative) Urine Color (Yellow) Urine Appearance (Clear) Urine pH (5.0-8.5) Ur Specific [place] (1.000-1.030) Urine Protein (Negative) Urine Glucose (UA) (Negative) Urine Ketones (Negative) Urine Blood (Negative) Urine Nitrite (Negative) Urine Bilirubin (Negative) Urine Urobilinogen (0.2-1.0) Ur Leukocyte Esterase (Negative) Urine RBC (0-2) Urine WBC (0-5) Ur Squamous Epith Cells (None-Few) Urine Bacteria (None) Urine HCG, Qual (Negative) Salicylates < 1.0 L (1.0-10) mg/dL Urine Opiates Screen (Negative) Ur Oxycodone Screen (Negative) Urine Methadone Screen (Negative) Acetaminophen < 10.0 L (10.0-30.0) ug/mL Ur Barbiturates Screen (Negative) U Tricyclic Antidepress (Negative) Ur Phencyclidine Scrn (Negative) Ur Amphetamines Screen (Negative) U Methamphetamines Scrn (Negative) U Benzodiazepines Scrn (Negative) Urine Cocaine Screen (Negative) U Marijuana (THC) Screen (Negative) Ur Drug Screen Comment Ethyl Alcohol 0.38 H* (0.01-0.03) % Lab Acknowledgement Test Added 07/10/23 Range/Units 20:20 WBC (4.50-11.00) K/uL RBC (4.00-5.20) m/uL Hgb (12.0-16.0) gm/dL Hct (33.0-51.0) % MCV (80-100) fL MCH (26-34) pg MCHC (32-36) gm/dL RDW Coeff of Chloe (11.5-15.5) % Plt Count (140-440) K/uL Neut % (Auto) (42.0-72.0) % Lymph % (Auto) (20-44) % [place] % (Auto) (0.0-11.0) % Eos % (Auto) (0.0-7.0) % Baso % (Auto) (0.0-3.0) % Neut # (Auto) (1.7-7.0) K/uL Lymph # (Auto) (0.90-2.90) K/uL [place] # (Auto) (0.00-0.90) K/UL Eos # (Auto) (0.00-0.50) K/uL Baso # (Auto) (0.00-0.30) K/uL Abs Immat Gran (auto) (0.00-0.30) K/uL Imm/Tot Granulo (auto) % Sodium (135-149) mmol/L Potassium (3.6-5.1) mmol/L Chloride (96-114) mmol/L Carbon Dioxide (20-32) mmol/L Anion Gap (7-15) mEq/L BUN (5-24) mg/dL Creatinine (0.5-1.5) mg/dL Estimated GFR ml/min Glucose (60-115) mg/dL Calcium (8.4-10.6) mg/dL Total Bilirubin (0.1-1.5) mg/dL AST (12-35) U/L ALT (4-35) U/L Alkaline Phosphatase (40-150) U/L Total Protein (6.0-8.3) g/dL Albumin (3.3-5.0) g/dL HCG, Qual (Negative) Urine Color Yellow (Yellow) Urine Appearance Clear (Clear) Urine pH 7.0 (5.0-8.5) Ur Specific [place] 1.015 (1.000-1.030) Urine Protein Negative (Negative) Urine Glucose (UA) Negative (Negative) Urine Ketones Negative (Negative) Urine Blood Negative (Negative) Urine Nitrite Negative (Negative) Urine Bilirubin Negative (Negative) Urine Urobilinogen 0.2 (0.2-1.0) Ur Leukocyte Esterase Trace A (Negative) Urine RBC 0-2 (0-2) Urine WBC 0-2 (0-5) Ur Squamous Epith Cells None (None-Few) Urine Bacteria None (None) Urine HCG, Qual Negative (Negative) Salicylates (1.0-10) mg/dL Urine Opiates Screen Negative (Negative) Ur Oxycodone Screen Negative (Negative) Urine Methadone Screen Negative (Negative) Acetaminophen (10.0-30.0) ug/mL Ur Barbiturates Screen Negative (Negative) U Tricyclic Antidepress Negative (Negative) Ur Phencyclidine Scrn Negative (Negative) Ur Amphetamines Screen Negative (Negative) U Methamphetamines Scrn Negative (Negative) U Benzodiazepines Scrn Negative (Negative) Urine Cocaine Screen Negative (Negative) U Marijuana (THC) Screen Negative (Negative) Ur Drug Screen Comment See Note Ethyl Alcohol (0.01-0.03) % Lab Acknowledgement <Brook Sethi MD - Last Filed: 07/11/23 05:55> Discharge Plan Discharge Clinical Impression: Alcoholic intoxication <Aries Hitchcock DO - Last Filed: 07/10/23 23:51> Patient Disposition: Home, Self-Care <Aries Hitchcock DO - Last Filed: 07/10/23 23:51> Condition: Improved <Aries Hitchcock DO - Last Filed: 07/10/23 23:51> Instructions: Abuse of Alcohol (DC) <Aries Hitchcock DO - Last Filed: 07/10/23 23:51> Additional Instructions: It is important you stop drinking so much alcohol. you need to see a counselor that specializes in alcohol dependence. Return to emergency department for new worsening symptoms <Aries Hitchcock DO - Last Filed: 07/10/23 23:51> Prescriptions: No Action No Known Home Medications <DO Marshall Mascorro Last Filed: 07/10/23 23:51> Follow Up/Referrals: Provider,Not a Local [Primary Care Provider] - <DO Marshall Mascorro Last Filed: 07/10/23 23:51> Stand Alone Forms: [employer] Info Instructions <Aries Hitchcock DO - Last Filed: 07/10/23 23:51>
[2023-07-10 17:43] LABS: Basophils Absolute Auto 0.09 K/uL (0.00-0.30); Basophils Percent Auto 1.5 % (0.0-3.0); Eosinophils Absolute Auto 0.03 K/uL (0.00-0.50); Eosinophils Percent Auto 0.5 % (0.0-7.0); Hematocrit 35.7 % (33.0-51.0); Hemoglobin* 12.3 gm/dL (12.0-16.0); Lymphocytes Percent Auto 50.2 % (20-44); Mean Corpuscular HGB Conc 35 gm/dL (32-36); Mean Corpuscular Hemoglobin 33 pg (26-34); Mean Corpuscular Volume 97 fL (80-100); Monocytes Percent Auto 5.8 % (0.0-11.0); Neutrophils Absolute Auto 2.53 K/uL (1.7-7.0); Platelet Count* 318 K/uL (140-440); RDW Coefficient of Variation % 11.7 % (11.5-15.5); Red Blood Count 3.69 m/uL (4.00-5.20); White Blood Count* 6.02 K/uL (4.50-11.00)
[2023-07-10 17:46] LABS: Slide Review Reflex No
[2023-07-10 17:56] LABS: Albumin* 4.7 g/dL (3.3-5.0); Chloride* 110 mmol/L (96-114); Potassium* 3.9 mmol/L (3.6-5.1); Sodium* 144 mmol/L (135-149)
[2023-07-10 17:58] LABS: Creatinine* 0.6 mg/dL (0.5-1.5); Estimated Glomerular Filt Rate 129 ml/min
[2023-07-10 17:59] LABS: Alanine Aminotransferase* 23 U/L (4-35); Alkaline Phosphatase* 61 U/L (40-150); Anion Gap 10 mEq/L (7-15); Aspartate Amino Transferase* 36 U/L (12-35); Bilirubin Total* 0.4 mg/dL (0.1-1.5); Blood Urea Nitrogen* 10 mg/dL (5-24); Calcium* 8.7 mg/dL (8.4-10.6); Carbon Dioxide* 24 mmol/L (20-32); Glucose* 134 mg/dL (60-115); Total Protein* 7.5 g/dL (6.0-8.3)
[2023-07-10 18:05] LABS: HCG Qualitative Serum* Negative (Negative)
[2023-07-10 18:29] LABS: Acetaminophen* < 10.0 ug/mL (10.0-30.0); Salicylate* < 1.0 mg/dL (1.0-10)
[2023-07-10 19:48] LABS: Ethanol* 0.38 % (0.01-0.03)
[2023-07-10 20:37] LABS: Appearance Urine Clear (Clear); Bilirubin Urine Negative (Negative); Blood Urine Negative (Negative); Color Urine Yellow (Yellow); Glucose Urine Negative (Negative); Ketones Urine Negative (Negative); Leukocyte Esterase Urine Trace (Negative); Nitrite Urine Negative (Negative); Protein Urine Negative (Negative); Specific Gravity Urine 1.015 (1.000-1.030); Urobilinogen Urine 0.2 (0.2-1.0)
[2023-07-10 20:41] LABS: Amphetamine Screen Urine Negative (Negative); Barbiturate Screen Urine Negative (Negative); Benzodiazepines Screen Urine Negative (Negative); Cannabinoid Screen Urine Negative (Negative); Cocaine Screen Urine Negative (Negative); Methadone Screen Urine Negative (Negative); Methamphetamines Screen Urine Negative (Negative); Opiate Screen Urine Negative (Negative); Oxycodone Screen Urine Negative (Negative); Phencyclidine Screen Urine Negative (Negative); Tricyclic Antidepressant Urine Negative (Negative)
[2023-07-10 20:47] LABS: RBC Urine 0-2 (0-2); WBC Urine 0-2 (0-5)
[2023-07-10 20:48] LABS: Ur HCG Qualitative* Negative (Negative)
[2023-07-11 01:57] VITALS: BP 118/76; PULSE 81; RESP 16; TEMP 36.7; O2SAT 99
[2023-07-11 06:08] VITALS: BP 121/74; PULSE 85; RESP 16; TEMP 36.7; O2SAT 99
[2023-07-11 06:13] VITALS: BP 121/74; PULSE 85; RESP 16; TEMP 36.7
== END 2023-07-11 06:14 | disposition home or self-care (01) ==
PROVIDERS: Emergency Provider Student in an Organized Health Care Education/Training Program
DX: F10.129 Alcohol abuse with intoxication, unspecified (principal)
CPT/HCPCS: 36415; 80053; 80143; 80179; 80306; 81001; 81025; 82077; 84703; 85025; 87086; 94761; 99283; J3411; J7030